=== PATIENT | female | born 1990 | race Caucasian/White ===

== ENCOUNTER 2023-05-15 05:44 | Inpatient (IN) | payer OTHER, SELFPAY ==
[2023-05-15 05:49] VITALS: BMI 32.8
[2023-05-15 06:14] VITALS: BP 103/68
[2023-05-15 06:26] LABS: Hemoglobin 13.6 g/dL (12.0-16.0); Mean Corp Hgb Conc. 34.9 g/dL (33.0-37.0); Mean Corpuscular Hgb 32.4 pg (27.0-31.0); Mean Corpuscular Volume 92.9 fL (81.0-99.0); Mean Platelet Volume 11.6 fL (7.4-10.4); Platelet Count 146 10^3/uL (130-400); Red Cell Dist. Width 13.3 % (11.5-14.5); White Blood Cell Count 6.4 10^3/uL (4.8-10.8)
[2023-05-15] MEDS: BICITRA 30 ML PO (07:04)
[2023-05-15] MEDS: TYLENOL 1000 MG PO (07:04)
[2023-05-15] MEDS: LR 1000 IV (07:04)
[2023-05-15] MEDS: ANCEF 10 IV (07:45)
[2023-05-15] MEDS: TORADOL 15 MG IV ×3 (11:54→23:46)
[2023-05-15] MEDS: TYLENOL 650 MG PO ×2 (19:46→23:49)
[2023-05-16 05:34] LABS: Hematocrit 32.9 % (37.0-47.0); Hemoglobin 11.1 g/dL (12.0-16.0); Mean Corp Hgb Conc. 33.7 g/dL (33.0-37.0); Mean Corpuscular Hgb 32.1 pg (27.0-31.0); Mean Corpuscular Volume 95.1 fL (81.0-99.0); Mean Platelet Volume 11.5 fL (7.4-10.4); Platelet Count 122 10^3/uL (130-400); Red Blood Cell Count 3.46 10^6/uL (4.20-5.40); Red Cell Dist. Width 13.8 % (11.5-14.5); White Blood Cell Count 8.6 10^3/uL (4.8-10.8)
[2023-05-16] MEDS: TORADOL 15 MG IV (05:54)
[2023-05-16] MEDS: TYLENOL 650 MG PO ×3 (05:58→18:11)
--- NOTE | 2023-05-16 07:54 | W.PN.ANS.POP ---
Anesthesia Post Operative
- Anesthesia Post Op Note
Vital Signs Stable-See Nursing Note: Yes
Airway Patent: Yes
Adequate Pain Control: Yes
Change in Mental Status: No
Current Postoperative Nausea & Vomiting: No
Anesthesia Complications: No
General Anesthetic Recall: No
Unplanned Admission: No
Post Op Hydration Adequate: Yes
[2023-05-16] MEDS: PRENATAL PLUS 1 TABLET PO (08:09)
[2023-05-16] MEDS: SENOKOT-S 1 TABLET PO (08:09)
[2023-05-16] MEDS: MOTRIN 600 MG PO ×2 (12:10→18:11)
[2023-05-17] MEDS: MOTRIN 600 MG PO ×3 (00:23→12:40)
[2023-05-17] MEDS: TYLENOL 650 MG PO ×3 (00:24→12:40)
--- NOTE | 2023-05-17 06:33 | W.DS.TRANS ---
DC Summary - Personal Counselor
-
Discharge Instructions:
Discharge Diagnosis/Procedures Term , delivered; s/p ERLTCS
Diet No restrictions
Instructions:
Stand-Alone Forms: LDRP Delivery
Changes to Home Medications: No
Discharge Medications:
DC Medications w/original date entered in [employer]
vit no.95-ferrous fumarate 28 mg-folic acid 800 mcg tablet () 1 ea PO DAILY Supplement 04/20/20
acetaminophen 325 mg tablet 650 mg PO Q4HPRN PRN mild pain #0 tabs 05/17/23
ibuprofen 600 mg tablet 600 mg PO Q6HPRN PRN cramps #30 tabs 05/17/23
oxycodone 5 mg tablet 5 mg PO Q4H PRN pain not relieved with motrin and tylenol alone #7 tabs 05/17/23
sennosides 8.6 mg-docusate sodium 50 mg tablet (Stool Softener-Stimulant Laxative) 1 tab PO DAILYPRN PRN constipation #0 tabs 05/17/23
Home Medication Changes
none
Pending Results: No
Total time spent discharging patient (in min): 20
[2023-05-17] MEDS: PRENATAL PLUS 1 TABLET PO (09:27)
[2023-05-17] MEDS: MYLICON 80 MG PO (09:27)
[2023-05-17] MEDS: SENOKOT-S 1 TABLET PO (12:40)
[2023-05-19 15:00] LABS: Syphilis/T. pallidum Ab Reflex Negative (Negative)
== END 2023-05-17 17:33 | disposition home or self-care (01) | DRG 788 ==
LOC: LDRP 05:44
PROVIDERS: ADMITTING PHYSICIAN Obstetrics & Gynecology
PROC: 10D00Z1 Extraction of Products of Conception, Low, Open Approach (ICD-10-PCS; 2023-05-15)
DX: O34.211 Maternal care for low transverse scar from previous cesarean delivery (principal); Z3A.39 39 weeks gestation of pregnancy; Z37.0 Single live birth; Z28.310 Unvaccinated for COVID-19
CPT/HCPCS: 85027; 86780; 86850; 86900; 86901